=== PATIENT | female | born 1930 | race Caucasian/White ===

== ENCOUNTER 2021-02-08 20:04 | Inpatient (IN) | payer MEDICARE, BC ==
[~2021-02-08] VITALS: Ht 160 cm; Wt 63.5 kg
[2021-02-08 21:03] LABS: HEMOGLOBIN 12.3 gm/dl (12.3-15.3); RED BLOOD COUNT 3.85 M/UL (4.00-5.10); WHITE BLOOD COUNT 8.4 K/UL (4.5-11.0)
[2021-02-08 21:18] LABS: BUN/CREATININE RATIO 27 (0-10)
[2021-02-09] MEDS ORDERED: METOPROLOL SUC100 MG PO (03:04)
[2021-02-09] MEDS ORDERED: LOSARTAN-HCTZ1 EAC2 PO (03:04)
[2021-02-09] MEDS ORDERED: TERAZOSIN HCL2 MG PO (03:05)
[2021-02-09 07:39] LABS: HEMOGLOBIN 11.2 gm/dl (12.3-15.3); RED BLOOD COUNT 3.51 M/UL (4.00-5.10); WHITE BLOOD COUNT 6.8 K/UL (4.5-11.0)
[2021-02-09 08:06] LABS: BUN/CREATININE RATIO 33 (0-10)
[2021-02-09 23:47] LABS: RED BLOOD COUNT 2.49 M/UL (4.00-5.10); WHITE BLOOD COUNT 11.8 K/UL (4.5-11.0)
[2021-02-10 05:48] LABS: RED BLOOD COUNT 2.22 M/UL (4.00-5.10); WHITE BLOOD COUNT 8.7 K/UL (4.5-11.0)
[2021-02-10 15:05] LABS: WHITE BLOOD COUNT 8.4 K/UL (4.5-11.0)
[2021-02-10 15:08] LABS: HEMOGLOBIN 9.8 gm/dl (12.3-15.3); RED BLOOD COUNT 3.47 M/UL (4.00-5.10)
[2021-02-11 05:37] LABS: HEMOGLOBIN 7.9 gm/dl (12.3-15.3)
[2021-02-11 05:42] LABS: BUN/CREATININE RATIO 32 (0-10)
[2021-02-11 06:27] LABS: RED BLOOD COUNT 2.7 M/UL (4.00-5.10); WHITE BLOOD COUNT 5.2 K/UL (4.5-11.0)
--- NOTE | 2021-02-11 14:16 | NUR ---
IV SITE WNL FLDS INFUSING , SCDS APPLIED ALSO GAVE IS AND INSTRUCTED HOW TO USE
--- NOTE | 2021-02-12 00:59 | NUR ---
DURING ASSESMENT ASK PT TO DEMOSTRATE I/S USEAGE. CONCEPCI[facility]N IS AT BEDSIDE EDUCATED TO ENCORAGE USEAGE MUCH POSSIBLE WHEN AWAKE.
[2021-02-12 06:32] LABS: RED BLOOD COUNT 2.52 M/UL (4.00-5.10); WHITE BLOOD COUNT 5.3 K/UL (4.5-11.0)
[2021-02-12 07:16] LABS: BUN/CREATININE RATIO 23 (0-10)
[2021-02-12 11:52] LABS: HEMOGLOBIN 8.1 gm/dl (12.3-15.3)
[2021-02-13 09:19] LABS: HEMOGLOBIN 8.5 gm/dl (12.3-15.3)
[2021-02-13 09:22] LABS: RED BLOOD COUNT 2.92 M/UL (4.00-5.10); WHITE BLOOD COUNT 6.8 K/UL (4.5-11.0)
[2021-02-13] MEDS ORDERED: DOCUSATE SODIU100 MG PO (10:50)
[2021-02-13] MEDS ORDERED: ROXICODONE TAB 55 MG PO (10:50)
[2021-02-13] MEDS ORDERED: LOVENOX40 MG/0.4 SQ (10:52)
== END 2021-02-13 15:21 | DRG 481 ==
LOC: ER1 20:04 → CDU 21:50 → CCU 21:50 → M/S 02-11 17:24
PROVIDERS: Emergency Medicine; Internal Medicine; Orthopaedic Surgery; ADMIT Internal Medicine
PROC: B24BZZZ Ultrasonography of Heart with Aorta (ICD-10-PCS; 2021-02-09)
PROC: 0QSB04Z Reposition Right Lower Femur with Internal Fixation Device, Open Approach (ICD-10-PCS; principal; 2021-02-09 13:20)
PROC: 30233N1 Transfusion of Nonautologous Red Blood Cells into Peripheral Vein, Percutaneous Approach (ICD-10-PCS; 2021-02-10)
DX: S72.21XA Displaced subtrochanteric fracture of right femur, initial encounter for closed fracture (principal); D62 Acute posthemorrhagic anemia; Z20.822 Contact with and (suspected) exposure to COVID-19; I10 Essential (primary) hypertension; W18.30XA Fall on same level, unspecified, initial encounter; G25.0 Essential tremor; Z98.42 Cataract extraction status, left eye; Z98.41 Cataract extraction status, right eye; Y93.9 Activity, unspecified; Y92.009 Unspecified place in unspecified non-institutional (private) residence as the place of occurrence of the external cause
CPT/HCPCS: ECHO; 36415; 36430; 71045; 73502; 73552; 76000; 80048; 80053; 85014; 85018; 85025; 85027; 85610; 85730; 86850; 86900; 86901; 86920; 93005; 93306; 94760; 96374; 96375; 97110; 97110-GP-CQ; 97116-GP-CQ; 97162; 97166; 97530; 97530-GP-CQ; 97535; 99284; C1713; G0378; J0690; J1100; J1650; J2270; J2405; J2704; J3010; J7120; P9016; U0002